=== PATIENT | female | born 1950 | race Hispanic/Latino ===

== ENCOUNTER 2021-04-20 08:52 | Emergency (ER) | payer MEDICARE ==
[2021-04-20] MEDS ORDERED: Acetaminophen/Codeine 30-300mg Tablet ONE (09:25)
== END 2021-04-20 09:17 | disposition home or self-care (01) ==
LOC: BURERS 08:52
DX: S83.92XA Sprain of unspecified site of left knee, initial encounter (principal); J44.9 Chronic obstructive pulmonary disease, unspecified; F17.200 Nicotine dependence, unspecified, uncomplicated